=== PATIENT | female | born 1990 | race Caucasian/White ===

== ENCOUNTER 2017-01-16 04:17 | Emergency (ER) | payer OTHER ==
[2017-01-16 04:41] LABS: BASOPHIL 0.2 % (0-2); EOSINOPHIL 2.9 % (0-5); HCT 37.6 % (37.0-47.0); HGB 13.2 g/dl (12.5-16.0); LYMPHOCYTE 42.2 % (15-48); MCHC 35.1 g/dL (32.0-36.0); MCV 88.3 fL (78.0-100.0); MONOCYTE 8.1 % (0-12); MPV 9.1 fL (6.0-9.5); NEUTROPHIL 46.6 % (41-80); PLT 300 K/uL (150-400); RBC 4.26 M/uL (4.20-5.40); RDW 12.7 % (11.5-14.0); WBC 6.3 K/uL (4.0-10.5)
[2017-01-16 04:50] LABS: INR 0.97 (0.9-1.2); PROTHROMBIN TIME 12.5 SECONDS (11.7-14.0); PTT 26.9 SECONDS (23.2-31.4)
[2017-01-16 04:51] LABS: D-DIMER 0.35 ug/mLFEU (0.00-0.41)
[2017-01-16 04:57] LABS: ALBUMIN 4.6 g/dL (3.5-5.0); BILIRUBIN - TOTAL 0.3 mg/dL (0.1-1.0); CREATININE 0.7 mg/dL (0.5-1.0); MAGNESIUM 1.88 mg/dL (1.40-2.10); POTASSIUM 3.3 mmol/L (3.5-5.1); TOTAL PROTEIN 7.6 g/dL (6.4-8.3)
[2017-01-16 05:03] LABS: PRO-BNP 40 pg/mL (0-125); TROPONIN T < 0.010 ng/mL
[2017-01-16 05:06] LABS: CKMB < 1.00 ng/mL (0.97-4.94); MYOGLOBIN < 21 ng/mL (26-65)
[2017-01-16 05:08] LABS: FT4 (FREE T4) 1.37 ng/dL (0.93-1.70); TSH (THYROID STIM HORMONE) 10.85 uIU/mL (0.270-4.200)
[2017-01-16 05:24] LABS: BILIRUBIN NEGATIVE (NEGATIVE); BLOOD NEGATIVE Ery/uL (NEGATIVE); CLARITY CLEAR (CLEAR); COLOR YELLOW (YELLOW); GLUCOSE (U) NORMAL (NORMAL); KETONE (U) NEGATIVE (NEGATIVE); LEUKOCYTES TRACE Leu/uL (NEGATIVE); NITRITE NEGATIVE (NEGATIVE); PROTEIN NEGATIVE (NEGATIVE); UROBILINOGEN 0.2 mg/dL (0.2-1.0)
[2017-01-16 05:28] LABS: BACTERIA 1+
== END 2017-01-16 07:31 | disposition home or self-care (01) ==
LOC: FER 04:17
PROVIDERS: Emergency Medicine Emergency Medical Services
DX: R07.89 Other chest pain (principal); M06.9 Rheumatoid arthritis, unspecified; I47.1 Supraventricular tachycardia; Z88.0 Allergy status to penicillin; Z88.1 Allergy status to other antibiotic agents; Z79.899 Other long term (current) drug therapy
CPT/HCPCS: 36415; 71010; 80053; 81001; 82550; 82553; 83735; 83874; 83880; 84439; 84443; 84484; 85025; 85379; 85610; 85730; 93005; J2060

== ENCOUNTER 2021-03-18 20:42 | Emergency (ER) | payer OTHER ==
[~2021-03-18 20:42] MED LIST: ZOFRAN8 MG PO
[2021-03-18 21:32] LABS: BASOPHIL 0.5 % (0-2); EOSINOPHIL 0.4 % (0-5); HCT 36.3 % (37.0-47.0); HGB 12.3 g/dl (12.5-16.0); LYMPHOCYTE 31.3 % (15-48); MCH 31.2 pg (25.0-31.0); MCHC 33.9 g/dL (32.0-36.0); MCV 92.1 fL (78.0-100.0); MONOCYTE 6.6 % (0-12); MPV 9.8 fL (6.0-9.5); NRBC 0; PLT 281 K/uL (150-400); RBC 3.94 M/uL (4.20-5.40); RDW 12.4 % (11.5-14.0); WBC 5.6 K/uL (4.0-10.5)
[2021-03-18 21:34] LABS: INR 1.05 (0.9-1.2); PROTHROMBIN TIME 13.1 SECONDS (11.8-13.4); PTT 27.1 SECONDS (24.4-34.7)
[2021-03-18 21:40] LABS: ALBUMIN 4.1 g/dL (3.4-5.0); BILIRUBIN - TOTAL 0.4 mg/dL (0.2-1.0); BUN/CREAT RATIO (CALC) 20.7 RATIO; CREATININE 0.92 mg/dL (0.51-0.95); GLOBULIN (CALCULATION) 3.8 g/dL; MAGNESIUM 2.1 mg/dL (1.8-2.4); POTASSIUM 3.7 mmol/L (3.5-5.1); TOTAL PROTEIN 7.9 g/dL (6.4-8.2)
== END 2021-03-18 22:40 | disposition home or self-care (01) ==
LOC: FER 20:42
PROVIDERS: Emergency Medicine Emergency Medical Services
DX: R07.89 Other chest pain (principal); R00.0 Tachycardia, unspecified; Z88.0 Allergy status to penicillin; Z88.1 Allergy status to other antibiotic agents; Z87.74 Personal history of (corrected) congenital malformations of heart and circulatory system; Z86.2 Personal history of diseases of the blood and blood-forming organs and certain disorders involving the immune mechanism
CPT/HCPCS: 36415; 71045; 80053; 83735; 84484; 85025; 85610; 85730; 93005; J1885; J7120

== ENCOUNTER 2021-08-31 12:45 | Emergency (ER) | payer OTHER ==
[2021-08-31 15:43] LABS: BILIRUBIN NEGATIVE (NEGATIVE); BLOOD NEGATIVE Ery/uL (NEGATIVE); CLARITY CLEAR (CLEAR); COLOR YELLOW (YELLOW); GLUCOSE (U) NORMAL (NORMAL); LEUKOCYTES NEGATIVE Leu/uL (NEGATIVE); NITRITE NEGATIVE (NEGATIVE); PROTEIN NEGATIVE (NEGATIVE); SPECIFIC GRAVITY 1.015 (1.001-1.030); UROBILINOGEN 0.2 mg/dL (0.2-1.0)
[2021-08-31 18:04] LABS: BASOPHIL 0.1 % (0-2); EOSINOPHIL 0 % (0-5); HCT 41.3 % (37.0-47.0); HGB 13.7 g/dl (12.5-16.0); LYMPHOCYTE 7.2 % (15-48); MCH 31.2 pg (25.0-31.0); MCHC 33.2 g/dL (32.0-36.0); MCV 94.1 fL (78.0-100.0); MONOCYTE 0.7 % (0-12); MPV 10.4 fL (6.0-9.5); NEUTROPHIL 91.9 % (41-80); NRBC 0; PLT 332 K/uL (150-400); RBC 4.39 M/uL (4.20-5.40); RDW 12.4 % (11.5-14.0); WBC 7.4 K/uL (4.0-10.5)
[2021-08-31 18:19] LABS: ALBUMIN 5.2 g/dL (3.4-5.0); BILIRUBIN - TOTAL 0.6 mg/dL (0.2-1.0); BUN/CREAT RATIO (CALC) 19.4 RATIO; CREATININE 0.67 mg/dL (0.51-0.95); GLOBULIN (CALCULATION) 3.9 g/dL; POTASSIUM 3.8 mmol/L (3.5-5.1); TOTAL PROTEIN 9.1 g/dL (6.4-8.2)
[2021-08-31] MEDS ORDERED: NORCO 5-325 TA1 EACH PO (19:49)
== END 2021-08-31 20:10 | disposition home or self-care (01) ==
LOC: FER 12:45
PROVIDERS: Internal Medicine; Physician Assistant
DX: M50.322 Other cervical disc degeneration at C5-C6 level (principal); M54.50 Low back pain, unspecified; R10.30 Lower abdominal pain, unspecified; Z88.0 Allergy status to penicillin; Z88.1 Allergy status to other antibiotic agents
CPT/HCPCS: 36415; 71045; 72125; 72131; 80053; 81003; 83690; 84145; 85025; J1885

== ENCOUNTER 2022-03-09 12:06 | Emergency (ER) | payer OTHER ==
[~2022-03-09 12:06] MED LIST changes: +NORCO 5-325 TA1 EACH PO
[2022-03-09 13:27] LABS: BILIRUBIN NEGATIVE (NEGATIVE); BLOOD TRACE-INTACT Ery/uL (NEGATIVE); CLARITY CLEAR (CLEAR); COLOR YELLOW (YELLOW); GLUCOSE (U) NORMAL (NORMAL); LEUKOCYTES TRACE Leu/uL (NEGATIVE); NITRITE NEGATIVE (NEGATIVE); PROTEIN NEGATIVE (NEGATIVE); SPECIFIC GRAVITY <=1.005 (1.001-1.030); UROBILINOGEN 0.2 mg/dL (0.2-1.0)
[2022-03-09 13:33] LABS: CORONAVIRUS 2019 SARS-COV-2 NEGATIVE (NEGATIVE); INFLUENZA A NAA NEGATIVE (NEGATIVE)
[2022-03-09 13:38] LABS: BACTERIA TRACE
[2022-03-09 13:41] LABS: BASOPHIL 0.5 % (0-2); EOSINOPHIL 2.1 % (0-5); HCT 39.9 % (37.0-47.0); HGB 13.7 g/dl (12.5-16.0); MCH 31.8 pg (25.0-31.0); MCHC 34.3 g/dL (32.0-36.0); MCV 92.6 fL (78.0-100.0); MPV 9.3 fL (6.0-9.5); NEUTROPHIL 63.4 % (41-80); NRBC 0; PLT 279 K/uL (150-400); RBC 4.31 M/uL (4.20-5.40); RDW 12.5 % (11.5-14.0); WBC 3.9 K/uL (4.0-10.5)
[2022-03-09 14:10] LABS: ALKALINE PHOSHATASE 49 U/L (46-116); ALT 26 U/L (14-59); AST 18 U/L (15-37); BILIRUBIN - TOTAL 0.5 mg/dL (0.2-1.0); BUN 14 mg/dL (7-18); BUN/CREAT RATIO (CALC) 20.9 RATIO; CHLORIDE 103 mmol/L (98-107); CO2 (BICARBONATE) 29 mmol/L (21-32); CPK 39 U/L (26-192); CREATININE 0.67 mg/dL (0.51-0.95); GLOBULIN (CALCULATION) 3.8 g/dL; GLUCOSE 96 mg/dL (74-106); MAGNESIUM 2.1 mg/dL (1.8-2.4); POTASSIUM 3.9 mmol/L (3.5-5.1); TOTAL PROTEIN 7.8 g/dL (6.4-8.2)
== END 2022-03-09 15:00 | disposition home or self-care (01) ==
LOC: FER 12:06
PROVIDERS: Emergency Medicine; Physician Assistant
DX: R00.2 Palpitations (principal); R53.1 Weakness; R53.83 Other fatigue; M79.10 Myalgia, unspecified site; R51.9 Headache, unspecified; R19.7 Diarrhea, unspecified; Z20.822 Contact with and (suspected) exposure to COVID-19; Z28.310 Unvaccinated for COVID-19; Z88.0 Allergy status to penicillin; Z88.1 Allergy status to other antibiotic agents
CPT/HCPCS: 36415; 71046; 80053; 81001; 82550; 83735; 84439; 84443; 84484; 85025; 93005; U0002